=== PATIENT | male | born 1980 | race African-American/Black ===

== ENCOUNTER 2017-01-26 23:41 | Observation (INO) | payer MEDICAID ==
[~2017-01-26] VITALS: Ht 182.9 cm; Wt 136.4 kg
[2017-01-27 00:25] LABS: HEMATOCRIT 40.3 % (42.0-54.0); HEMOGLOBIN 14.3 g/dL (13.5-17.5); LYMPHOCYTES 38.9 % (15-50); MCH 30.4 pg (26.0-34.0); MCHC 35.5 g/dL (31.0-37.0); MCV 85.7 fL (80.0-100.0); MEAN PLATELET VOLUME 8.5 fL (7.4-10.4); NEUTROPHILS 55.9 % (40-80); PLATELET COUNT 268 10x3/uL (130-400); RDW 13.2 % (11.5-14.5); WBC 7.5 10x3/uL (4.8-10.8)
[2017-01-27 00:46] LABS: ALBUMIN 3.7 g/dL (3.4-5.0); ALKALINE PHOSPHATASE 82 U/L (46-116); ALT (SGPT) 64 U/L (10-68); BILIRUBIN - TOTAL 0.64 mg/dL (0.2-1.3); CALC OSMOLALITY 279 mosm/kg (275-300); CALCIUM 9.2 mg/dL (8.5-10.1); CARBON DIOXIDE 26.9 mmol/L (21.0-32.0); CHLORIDE - SERUM 102 mmol/L (98-107); CREATININE - SERUM 0.9 mg/dL (0.6-1.3); GLUCOSE 174 mg/dL (74-106); POTASSIUM - SERUM 3.6 mmol/L (3.5-5.1); SODIUM 139 mmol/L (136-145); UREA NITROGEN 8 mg/dL (7-18); eGFR NON AFRICAN AMERICAN > 90 mL/min (90-120)
[2017-01-27 00:48] LABS: CKMB 2.1 U/L (0.0-3.6); CREATINE KINASE 485 UL (21-232)
[2017-01-27 00:49] LABS: TROPONIN-I < 0.017 ng/mL (0.000-0.060)
--- NOTE | 2017-01-27 02:32 | NUR ---
ATTEMPTED TO CALL ER NURSE LENY AT EXT [phone] TO RECIEVE REPORT, NO ANSWER.
[2017-01-27 03:12] VITALS: BP 153/103; Ht 182.9 cm; Wt 136.4 kg
[2017-01-27] MEDS ORDERED: LISINOPRIL-HCTZ1 TA2 PO (03:12)
[2017-01-27] MEDS ORDERED: CARAFATE1 G PO (03:13)
[2017-01-27] MEDS ORDERED: CYMBALTA30 MG PO (03:14)
[2017-01-27 03:18] LABS: CREATINE KINASE 450 UL (21-232); TROPONIN-I < 0.017 ng/mL (0.000-0.060)
--- NOTE | 2017-01-27 03:42 | NUR ---
SPOKE WITH DR HIGGINS, CARRY OUT CLERK FOR DR LYONS, INFORMED HIM OF PTS COMPLAINTS OF STREETER, CP AND ELEVATED BP. SHAHEED ORDERD FOR C/O PAIN AND STATED THAT HE WILL HAVE DR LYONS COVER HIS BP IN THE MORNING.
--- NOTE | 2017-01-27 03:47 | NUR ---
NORCO 1 TAB GIVEN FOR C/O PAIN. WILL CONT TO MONITOR.
[2017-01-27 08:00] VITALS: BP 149/104
--- NOTE | 2017-01-27 08:45 | NUR ---
JILL NEEDS ATTHIS TIME. CALL LIGHT IN REACH. WILL MONITOR.
[2017-01-27 09:37] LABS: CREATINE KINASE 468 UL (21-232)
[2017-01-27 09:44] LABS: BASOPHILS 0.4 % (0-2); HEMOGLOBIN 14.2 g/dL (13.5-17.5); IMMATURE GRANULOCYTES 0.3 % (0-5); LYMPHOCYTES 40.8 % (15-50); MCH 31.2 pg (26.0-34.0); MCHC 35.5 g/dL (31.0-37.0); MEAN PLATELET VOLUME 9.6 fL (7.4-10.4); MONOCYTES 7.9 % (2-11); NEUTROPHILS 47.6 % (40-80); PLATELET COUNT 251 10x3/uL (130-400); RBC 4.55 10x6/uL (4.20-6.10); RDW 12.7 % (11.5-14.5); WBC 7.1 10x3/uL (4.8-10.8)
[2017-01-27 09:46] LABS: MCV 87.9 fL (80.0-100.0); TROPONIN-I < 0.017 ng/mL (0.000-0.060)
[2017-01-27 09:52] LABS: CALC OSMOLALITY 269 mosm/kg (275-300); CALCIUM 9.3 mg/dL (8.5-10.1); CARBON DIOXIDE 26.8 mmol/L (21.0-32.0); CHLORIDE - SERUM 98 mmol/L (98-107); CREATININE - SERUM 0.9 mg/dL (0.6-1.3); GLUCOSE 204 mg/dL (74-106); POTASSIUM - SERUM 3.5 mmol/L (3.5-5.1); SODIUM 132 mmol/L (136-145); eGFR NON AFRICAN AMERICAN > 90 mL/min (90-120)
[2017-01-27 09:57] LABS: UREA NITROGEN 11 mg/dL (7-18)
[2017-01-27 12:38] VITALS: BP 147/94
--- NOTE | 2017-01-27 14:08 | NUR ---
DC GIVEN TO PT
--- NOTE | 2017-01-27 14:31 | NUR ---
DC HOME PER PERSONAL CAR
== END 2017-01-27 14:31 | disposition home or self-care (01) ==
LOC: D.ER 23:41 → D.M2 01-27 02:21 → OBSVTIME 01-27 02:21 → D.M2 01-27 14:27
PROVIDERS: Family Medicine; Internal Medicine Interventional Cardiology; ADMIT Family Medicine
DX: R07.9 Chest pain, unspecified (principal); R94.31 Abnormal electrocardiogram [ECG] [EKG]; I10 Essential (primary) hypertension; F32.9 Major depressive disorder, single episode, unspecified; K21.9 Gastro-esophageal reflux disease without esophagitis; Z87.891 Personal history of nicotine dependence

== ENCOUNTER 2017-03-09 15:16 | Emergency (ER) | payer MEDICAID ==
[2017-01-27 03:12] VITALS: BMI 40.8
[~2017-03-09 15:16] MED LIST: CARAFATE1 G PO; CYMBALTA30 MG PO; LISINOPRIL-HCTZ1 TA2 PO
== END 2017-03-09 15:30 | disposition left against medical advice (07) ==
LOC: D.ER 15:16
DX: Z02.9 Encounter for administrative examinations, unspecified (principal)

== ENCOUNTER 2017-05-16 16:33 | Emergency (ER) | payer MEDICAID ==
[2017-01-27 03:12] VITALS: BMI 40.8
[2017-05-16 17:34] LABS: BASOPHILS 0.3 % (0-2); EOSINOPHILS 1.6 % (0-7); HEMATOCRIT 37.4 % (42.0-54.0); HEMOGLOBIN 12.9 g/dL (13.5-17.5); IMMATURE GRANULOCYTES 0.3 % (0-5); LYMPHOCYTES 21.4 % (15-50); MCH 29.9 pg (26.0-34.0); MCHC 34.5 g/dL (31.0-37.0); MCV 86.8 fL (80.0-100.0); MEAN PLATELET VOLUME 9.1 fL (7.4-10.4); MONOCYTES 7.3 % (2-11); NEUTROPHILS 69.1 % (40-80); PLATELET COUNT 235 10x3/uL (130-400); RBC 4.31 10x6/uL (4.20-6.10); RDW 12.4 % (11.5-14.5); WBC 10.7 10x3/uL (4.8-10.8)
[2017-05-16 17:49] LABS: ALBUMIN 3.3 g/dL (3.4-5.0); ALKALINE PHOSPHATASE 86 U/L (46-116); ALT (SGPT) 50 U/L (10-68); BILIRUBIN - TOTAL 1.05 mg/dL (0.2-1.3); CALC OSMOLALITY 264 mosm/kg (275-300); CHLORIDE - SERUM 98 mmol/L (98-107); CREATININE - SERUM 1.1 mg/dL (0.6-1.3); POTASSIUM - SERUM 3.6 mmol/L (3.5-5.1); SODIUM 132 mmol/L (136-145); UREA NITROGEN 8 mg/dL (7-18); eGFR NON AFRICAN AMERICAN 81 mL/min (90-120)
[2017-05-16 17:50] LABS: GLUCOSE 127 mg/dL (74-106)
[2017-05-16 17:52] LABS: TROPONIN-I < 0.017 ng/mL (0.000-0.060)
== END 2017-05-16 20:05 | disposition home or self-care (01) ==
LOC: D.ER 16:33
PROVIDERS: Emergency Medicine
DX: J20.9 Acute bronchitis, unspecified (principal); I10 Essential (primary) hypertension; R00.0 Tachycardia, unspecified

== ENCOUNTER 2017-08-31 11:59 | Emergency (ER) | payer MEDICAID ==
[2017-01-27 03:12] VITALS: BMI 40.8
[2017-08-31 13:15] LABS: BASOPHILS 0.4 % (0-2); EOSINOPHILS 2.3 % (0-7); HEMATOCRIT 37.8 % (42.0-54.0); HEMOGLOBIN 13.4 g/dL (13.5-17.5); IMMATURE GRANULOCYTES 0.2 % (0-5); LYMPHOCYTES 39.1 % (15-50); MCH 29.7 pg (26.0-34.0); MCHC 35.4 g/dL (31.0-37.0); MCV 83.8 fL (80.0-100.0); MEAN PLATELET VOLUME 9.1 fL (7.4-10.4); MONOCYTES 7.7 % (2-11); NEUTROPHILS 50.3 % (40-80); PLATELET COUNT 231 10x3/uL (130-400); RBC 4.51 10x6/uL (4.20-6.10); RDW 12.9 % (11.5-14.5); WBC 4.8 10x3/uL (4.8-10.8)
[2017-08-31 13:31] LABS: ALBUMIN 3.7 g/dL (3.4-5.0); ALKALINE PHOSPHATASE 73 U/L (46-116); ALT (SGPT) 54 U/L (10-68); BILIRUBIN - TOTAL 0.65 mg/dL (0.2-1.3); CALC OSMOLALITY 274 mosm/kg (275-300); CALCIUM 9.1 mg/dL (8.5-10.1); CARBON DIOXIDE 26.4 mmol/L (21.0-32.0); CHLORIDE - SERUM 101 mmol/L (98-107); CREATININE - SERUM 0.9 mg/dL (0.6-1.3); POTASSIUM - SERUM 3.9 mmol/L (3.5-5.1); PROTEIN - SERUM 7.6 g/dL (6.4-8.2); SODIUM 136 mmol/L (136-145); UREA NITROGEN 9 mg/dL (7-18); eGFR NON AFRICAN AMERICAN > 90 mL/min (90-120)
[2017-08-31 13:32] LABS: GLUCOSE 177 mg/dL (74-106); TROPONIN-I < 0.017 ng/mL (0.000-0.060)
== END 2017-08-31 17:06 | disposition home or self-care (01) ==
LOC: D.ER 11:59
PROVIDERS: Family Medicine
DX: R73.9 Hyperglycemia, unspecified (principal); I10 Essential (primary) hypertension; K21.9 Gastro-esophageal reflux disease without esophagitis; F03.90 Unspecified dementia, unspecified severity, without behavioral disturbance, psychotic disturbance, mood disturbance, and anxiety

== ENCOUNTER 2017-11-02 05:14 | Emergency (ER) | payer MEDICAID ==
[2017-01-27 03:12] VITALS: BMI 40.8
[2017-11-02 05:46] LABS: BASOPHILS 0.5 % (0-2); EOSINOPHILS 3.9 % (0-7); HEMATOCRIT 37.7 % (42.0-54.0); HEMOGLOBIN 13.2 g/dL (13.5-17.5); IMMATURE GRANULOCYTES 0.2 % (0-5); LYMPHOCYTES 44.6 % (15-50); MCH 29.7 pg (26.0-34.0); MCV 84.9 fL (80.0-100.0); NEUTROPHILS 41.8 % (40-80); PLATELET COUNT 235 10x3/uL (130-400); RBC 4.44 10x6/uL (4.20-6.10); RDW 12.7 % (11.5-14.5); WBC 6.1 10x3/uL (4.8-10.8)
[2017-11-02 06:00] LABS: ALBUMIN 3.4 g/dL (3.4-5.0); ALKALINE PHOSPHATASE 80 U/L (46-116); ALT (SGPT) 51 U/L (10-68); BILIRUBIN - TOTAL 0.56 mg/dL (0.2-1.3); CALC OSMOLALITY 273 mosm/kg (275-300); CALCIUM 8.9 mg/dL (8.5-10.1); CARBON DIOXIDE 29.2 mmol/L (21.0-32.0); CHLORIDE - SERUM 101 mmol/L (98-107); GLUCOSE 136 mg/dL (74-106); POTASSIUM - SERUM 3.7 mmol/L (3.5-5.1); PROTEIN - SERUM 7.7 g/dL (6.4-8.2); SODIUM 136 mmol/L (136-145); UREA NITROGEN 13 mg/dL (7-18); eGFR NON AFRICAN AMERICAN 90 mL/min (90-120)
[2017-11-02 06:11] LABS: CKMB 3.3 U/L (0.0-3.6); CREATINE KINASE 654 UL (21-232)
[2017-11-02 06:30] LABS: TROPONIN-I < 0.017 ng/mL (0.000-0.060)
== END 2017-11-02 06:45 | disposition home or self-care (01) ==
LOC: D.ER 05:14
PROVIDERS: Emergency Medicine
DX: R07.89 Other chest pain (principal); K21.9 Gastro-esophageal reflux disease without esophagitis; I10 Essential (primary) hypertension

== ENCOUNTER 2018-01-15 20:56 | Emergency (ER) | payer MEDICAID ==
[~2018-01-15] VITALS: Ht 182.9 cm; Wt 129.3 kg
[2018-01-15 21:39] VITALS: Ht 182.9 cm; Wt 129.3 kg
[2018-01-15] MEDS ORDERED: ADIPEX-P37.5 M1 PO (21:42)
[2018-01-15] MEDS ORDERED: ACTOS15 MG PO (21:42)
[2018-01-15 21:58] LABS: BASOPHILS 0.3 % (0-2); EOSINOPHILS 1.9 % (0-7); HEMATOCRIT 43.1 % (42.0-54.0); HEMOGLOBIN 15.4 g/dL (13.5-17.5); IMMATURE GRANULOCYTES 0.2 % (0-5); LYMPHOCYTES 38.2 % (15-50); MCH 30.4 pg (26.0-34.0); MCHC 35.7 g/dL (31.0-37.0); MCV 85.2 fL (80.0-100.0); MONOCYTES 6.5 % (2-11); NEUTROPHILS 52.9 % (40-80); PLATELET COUNT 273 10x3/uL (130-400); RBC 5.06 10x6/uL (4.20-6.10); RDW 12.8 % (11.5-14.5); WBC 5.9 10x3/uL (4.8-10.8)
[2018-01-15 22:12] LABS: ANION GAP 11.4 mmol/L (8-16); BILIRUBIN - TOTAL 0.57 mg/dL (0.2-1.3); CALCIUM 9.6 mg/dL (8.5-10.1); CARBON DIOXIDE 28.9 mmol/L (21.0-32.0); CREATININE - SERUM 1.2 mg/dL (0.6-1.3); POTASSIUM - SERUM 4.3 mmol/L (3.5-5.1); PROTEIN - SERUM 8.6 g/dL (6.4-8.2)
[2018-01-15 23:48] LABS: APPEARANCE CLEAR (CLEAR); BILIRUBIN NEGATIVE (NEGATIVE); COLOR YELLOW (YELLOW); GLUCOSE NEGATIVE (NEGATIVE); KETONE NEGATIVE (NEGATIVE); NITRITE NEGATIVE (NEGATIVE); PROTEIN NEGATIVE (NEGATIVE); UROBILINOGEN NORMAL (NORMAL)
[2018-01-15 23:54] LABS: UDS - AMPHET NEGATIVE QUAL (NEGATIVE); UDS - BARB NEGATIVE QUAL (NEGATIVE); UDS - BENZO NEGATIVE QUAL (NEGATIVE); UDS - COCAINE NEGATIVE QUAL (NEGATIVE); UDS - OPIATE NEGATIVE QUAL (NEGATIVE); UDS - PCP NEGATIVE QUAL (NEGATIVE); UDS - THC NEGATIVE QUAL (NEGATIVE)
[2018-01-16] MEDS ORDERED: ZOFRAN4 MG PO (02:32)
[2018-01-16 02:58] VITALS: BP 136/91
== END 2018-01-16 02:58 | disposition home or self-care (01) ==
LOC: D.ER 20:56
PROVIDERS: Emergency Medicine
DX: K52.9 Noninfective gastroenteritis and colitis, unspecified (principal); R11.0 Nausea; I10 Essential (primary) hypertension; F17.200 Nicotine dependence, unspecified, uncomplicated

== ENCOUNTER 2019-01-11 03:24 | Emergency (ER) | payer MEDICAID ==
[~2019-01-11] VITALS: Ht 182.9 cm; Wt 95.3 kg
[~2019-01-11 03:24] MED LIST changes: +ACTOS15 MG PO; +ADIPEX-P37.5 M1 PO; +ZOFRAN4 MG PO
[2019-01-11 03:29] VITALS: Ht 182.9 cm; Wt 95.3 kg
[2019-01-11] MEDS ORDERED: KEFLEX500 MG PO (03:46)
[2019-01-11 03:58] VITALS: BP 132/97
== END 2019-01-11 03:58 | disposition home or self-care (01) ==
LOC: D.ER 03:24
DX: S91.312A Laceration without foreign body, left foot, initial encounter (principal); W26.8XXA Contact with other sharp object(s), not elsewhere classified, initial encounter; Y93.89 Activity, other specified; Y92.019 Unspecified place in single-family (private) house as the place of occurrence of the external cause

== ENCOUNTER 2019-01-28 01:14 | Emergency (ER) | payer MEDICAID ==
[~2019-01-28] VITALS: Ht 182.9 cm; Wt 122.7 kg
[~2019-01-28 01:14] MED LIST changes: +KEFLEX500 MG PO
[2019-01-28 01:18] VITALS: Ht 182.9 cm; Wt 122.7 kg
[2019-01-28] MEDS ORDERED: TOPAMAX50 MG PO (01:19)
[2019-01-28] MEDS ORDERED: VYVANSE20 MG PO (01:20)
[2019-01-28] MEDS ORDERED: CYCLOBENZAPRINE10 MG PO (02:01)
[2019-01-28 02:19] VITALS: BP 132/81
== END 2019-01-28 02:20 | disposition home or self-care (01) ==
LOC: D.ER 01:14
DX: M79.601 Pain in right arm (principal)

== ENCOUNTER 2019-05-16 13:34 | Emergency (ER) | payer MEDICAID ==
[~2019-05-16] VITALS: Ht 182.9 cm; Wt 134.1 kg
[~2019-05-16 13:34] MED LIST changes: +CYCLOBENZAPRINE10 MG PO; +TOPAMAX50 MG PO; +VYVANSE20 MG PO
[2019-05-16 13:45] VITALS: Ht 182.9 cm; Wt 134.1 kg
[2019-05-16] MEDS ORDERED: VISTARIL25 MG PO (17:05)
[2019-05-16] MEDS ORDERED: MEDROL DOSE PACK4 MG PO (17:05)
[2019-05-16 17:15] VITALS: BP 128/81
== END 2019-05-16 17:17 | disposition home or self-care (01) ==
LOC: D.ER 13:34
DX: L30.9 Dermatitis, unspecified (principal); E11.9 Type 2 diabetes mellitus without complications; I10 Essential (primary) hypertension

== ENCOUNTER 2019-11-06 23:01 | Emergency (ER) | payer MEDICAID ==
[~2019-11-06] VITALS: Ht 182.9 cm; Wt 136.4 kg
[~2019-11-06 23:01] MED LIST changes: +MEDROL DOSE PACK4 MG PO; +VISTARIL25 MG PO
[2019-11-06 23:07] VITALS: Ht 182.9 cm; Wt 136.4 kg
[2019-11-06] MEDS ORDERED: MIRALAX17 GM PO (23:41)
[2019-11-07 00:11] VITALS: BP 125/77
[2019-11-07] MEDS ORDERED: BENTYL 20 MG TA20 MG PO (22:54)
== END 2019-11-07 00:12 | disposition home or self-care (01) ==
LOC: D.ER 23:01
DX: K59.00 Constipation, unspecified (principal); I10 Essential (primary) hypertension; Z72.0 Tobacco use

== ENCOUNTER 2019-11-07 19:56 | Emergency (ER) | payer MEDICAID ==
[~2019-11-07] VITALS: Ht 182.9 cm; Wt 136.1 kg
[~2019-11-07 19:56] MED LIST changes: +MIRALAX17 GM PO
[2019-11-07 20:00] VITALS: Ht 182.9 cm; Wt 136.1 kg
[2019-11-07 20:14] LABS: BASOPHILS 0.3 % (0-2); EOSINOPHILS 0.3 % (0-7); HEMATOCRIT 39.2 % (42.0-54.0); HEMOGLOBIN 13.7 g/dL (13.5-17.5); IMMATURE GRANULOCYTES 0.1 % (0-5); LYMPHOCYTES 25.6 % (15-50); MCHC 34.9 g/dL (31.0-37.0); MEAN PLATELET VOLUME 8.5 fL (7.4-10.4); MONOCYTES 7.1 % (2-11); NEUTROPHILS 66.6 % (40-80); PLATELET COUNT 284 10x3/uL (130-400); RBC 4.56 10x6/uL (4.20-6.10); RDW 12.9 % (11.5-14.5); WBC 7.2 10x3/uL (4.8-10.8)
[2019-11-07 20:39] LABS: CALC OSMOLALITY 270 mosm/kg (275-300); CALCIUM 9.3 mg/dL (8.5-10.1); CARBON DIOXIDE 23.6 mmol/L (21.0-32.0); CHLORIDE - SERUM 99 mmol/L (98-107); CREATININE - SERUM 0.9 mg/dL (0.6-1.3); GLUCOSE 126 mg/dL (74-106); POTASSIUM - SERUM 3.5 mmol/L (3.5-5.1); SODIUM 135 mmol/L (136-145); UREA NITROGEN 9 mg/dL (7-18); eGFR NON AFRICAN AMERICAN > 90 mL/min (90-120)
[2019-11-07 20:43] LABS: ALBUMIN 4.1 g/dL (3.4-5.0); ALKALINE PHOSPHATASE 82 U/L (30-120); ALT (SGPT) 48 U/L (10-68); AMYLASE - SERUM 51 U/L (25-115); BILIRUBIN - TOTAL 0.95 mg/dL (0.2-1.3); LIPASE 65 U/L (73-393); PROTEIN - SERUM 8.3 g/dL (6.4-8.2)
[2019-11-07 20:44] LABS: TROPONIN-I < 0.017 ng/mL (0.000-0.060)
[2019-11-07 22:19] LABS: BILIRUBIN NEGATIVE (NEGATIVE); GLUCOSE NEGATIVE (NEGATIVE); KETONE MODERATE mg/dL (NEGATIVE); NITRITE NEGATIVE (NEGATIVE); UROBILINOGEN NORMAL (NORMAL)
[2019-11-07] MEDS ORDERED: BENTYL 20 MG TA20 MG PO (22:54)
[2019-11-07 23:28] VITALS: BP 145/79
== END 2019-11-07 23:31 | disposition home or self-care (01) ==
LOC: D.ER 19:56
PROVIDERS: Family Medicine
DX: R10.12 Left upper quadrant pain (principal); I10 Essential (primary) hypertension

== ENCOUNTER 2019-11-14 11:52 | Emergency (ER) | payer MEDICAID ==
[~2019-11-14 11:52] MED LIST changes: +BENTYL 20 MG TA20 MG PO
[2019-11-14 11:57] VITALS: Ht 182.9 cm
[2019-11-14 12:35] LABS: BASOPHILS 0.1 % (0-2); HEMATOCRIT 39.5 % (42.0-54.0); HEMOGLOBIN 13.5 g/dL (13.5-17.5); IMMATURE GRANULOCYTES 0.3 % (0-5); LYMPHOCYTES 27.3 % (15-50); MCH 29.8 pg (26.0-34.0); MCHC 34.2 g/dL (31.0-37.0); MCV 87.2 fL (80.0-100.0); MEAN PLATELET VOLUME 8.7 fL (7.4-10.4); MONOCYTES 6.9 % (2-11); NEUTROPHILS 64.4 % (40-80); PLATELET COUNT 272 10x3/uL (130-400); RBC 4.53 10x6/uL (4.20-6.10); RDW 13.7 % (11.5-14.5); WBC 6.9 10x3/uL (4.8-10.8)
[2019-11-14 12:45] LABS: APTT 25.2 SECONDS (22.8-39.4); INR 1.05 (0.85-1.17); PROTIME 13.7 SECONDS (11.6-15.0)
[2019-11-14 12:49] LABS: CALC OSMOLALITY 277 mosm/kg (275-300); CALCIUM 8.7 mg/dL (8.5-10.1); CARBON DIOXIDE 24.8 mmol/L (21.0-32.0); CHLORIDE - SERUM 104 mmol/L (98-107); CREATININE - SERUM 1.2 mg/dL (0.6-1.3); GLUCOSE 152 mg/dL (74-106); POTASSIUM - SERUM 3.4 mmol/L (3.5-5.1); SODIUM 138 mmol/L (136-145); UREA NITROGEN 10 mg/dL (7-18); eGFR NON AFRICAN AMERICAN 72 mL/min (90-120)
[2019-11-14 13:07] LABS: ALKALINE PHOSPHATASE 77 U/L (30-120); ALT (SGPT) 48 U/L (10-68); BILIRUBIN - TOTAL 0.47 mg/dL (0.2-1.3); CKMB 4.2 U/L (0.0-3.6); MAGNESIUM - SERUM 2.3 mg/dL (1.8-2.4); PROTEIN - SERUM 7.8 g/dL (6.4-8.2)
[2019-11-14 13:08] LABS: CREATINE KINASE 921 UL (21-232); TROPONIN-I < 0.017 ng/mL (0.000-0.060)
[2019-11-14 13:34] VITALS: BP 146/76
== END 2019-11-14 13:35 | disposition home or self-care (01) ==
LOC: D.ER 11:52
PROVIDERS: Family Medicine
DX: R07.89 Other chest pain (principal); K59.00 Constipation, unspecified; R73.03 Prediabetes; I10 Essential (primary) hypertension

== ENCOUNTER 2019-12-16 02:15 | Emergency (ER) | payer MEDICAID ==
[~2019-12-16] VITALS: Ht 182.9 cm; Wt 134.1 kg
[2019-12-16 02:27] VITALS: Ht 182.9 cm; Wt 134.1 kg
[2019-12-16] MEDS ORDERED: DULCOLAX STOOL100 MG PO (04:08)
[2019-12-16] MEDS ORDERED: GAS-X180 MG PO (04:08)
[2019-12-16 04:13] VITALS: BP 157/81
== END 2019-12-16 04:13 | disposition home or self-care (01) ==
LOC: D.ER 02:15
DX: K59.09 Other constipation (principal); R73.03 Prediabetes; I10 Essential (primary) hypertension

== ENCOUNTER 2019-12-19 03:14 | Emergency (ER) | payer MEDICAID ==
[~2019-12-19] VITALS: Ht 182.9 cm; Wt 90.9 kg
[~2019-12-19 03:14] MED LIST changes: +DULCOLAX STOOL100 MG PO; +GAS-X180 MG PO
[2019-12-19 03:24] VITALS: Ht 182.9 cm; Wt 90.9 kg
[2019-12-19 03:39] LABS: HEMATOCRIT 38.9 % (42.0-54.0); HEMOGLOBIN 13.8 g/dL (13.5-17.5); LYMPHOCYTES 29.5 % (15-50); MCH 30.8 pg (26.0-34.0); MCHC 35.5 g/dL (31.0-37.0); MCV 86.8 fL (80.0-100.0); MEAN PLATELET VOLUME 8.4 fL (7.4-10.4); NEUTROPHILS 61.8 % (40-80); PLATELET COUNT 247 10x3/uL (130-400); RBC 4.48 10x6/uL (4.20-6.10); RDW 13.4 % (11.5-14.5); WBC 7.1 10x3/uL (4.8-10.8)
[2019-12-19 03:52] LABS: CALC OSMOLALITY 272 mosm/kg (275-300); CALCIUM 9.1 mg/dL (8.5-10.1); CARBON DIOXIDE 30.4 mmol/L (21.0-32.0); CHLORIDE - SERUM 100 mmol/L (98-107); CREATININE - SERUM 0.9 mg/dL (0.6-1.3); GLUCOSE 131 mg/dL (74-106); POTASSIUM - SERUM 3.2 mmol/L (3.5-5.1); PROTIME 13.1 SECONDS (11.6-15.0); SODIUM 137 mmol/L (136-145); UREA NITROGEN 3 mg/dL (7-18); eGFR NON AFRICAN AMERICAN > 90 mL/min (90-120)
[2019-12-19 04:07] LABS: ALKALINE PHOSPHATASE 77 U/L (30-120); ALT (SGPT) 52 U/L (10-68); BILIRUBIN - TOTAL 0.64 mg/dL (0.2-1.3); CKMB 4.9 U/L (0.0-3.6); MAGNESIUM - SERUM 2.1 mg/dL (1.8-2.4); PROTEIN - SERUM 7.7 g/dL (6.4-8.2)
[2019-12-19 04:12] LABS: CREATINE KINASE 1167 UL (21-232); TROPONIN-I < 0.017 ng/mL (0.000-0.060)
[2019-12-19 04:47] VITALS: BP 132/74
[2019-12-20] MEDS ORDERED: OMEPRAZOLE20 M1 PO (16:59)
== END 2019-12-19 04:47 | disposition home or self-care (01) ==
LOC: D.ER 03:14
PROVIDERS: Surgery
DX: R07.89 Other chest pain (principal); D64.9 Anemia, unspecified; K59.00 Constipation, unspecified; I10 Essential (primary) hypertension; E87.6 Hypokalemia; R73.03 Prediabetes; Z72.0 Tobacco use

== ENCOUNTER 2019-12-20 14:10 | Emergency (ER) | payer MEDICAID ==
[~2019-12-20] VITALS: Ht 182.9 cm; Wt 131.8 kg
[2019-12-20 14:22] VITALS: Ht 182.9 cm; Wt 131.8 kg
[2019-12-20 15:06] LABS: CALC OSMOLALITY 275 mosm/kg (275-300); CALCIUM 8.4 mg/dL (8.5-10.1); CARBON DIOXIDE 26.5 mmol/L (21.0-32.0); CHLORIDE - SERUM 104 mmol/L (98-107); CREATININE - SERUM 0.8 mg/dL (0.6-1.3); GLUCOSE 110 mg/dL (74-106); POTASSIUM - SERUM 3.9 mmol/L (3.5-5.1); SODIUM 139 mmol/L (136-145); UREA NITROGEN 3 mg/dL (7-18); eGFR NON AFRICAN AMERICAN > 90 mL/min (90-120)
[2019-12-20 15:22] LABS: ALBUMIN 3.7 g/dL (3.4-5.0); ALKALINE PHOSPHATASE 79 U/L (30-120); ALT (SGPT) 53 U/L (10-68); BILIRUBIN - TOTAL 0.36 mg/dL (0.2-1.3); CKMB 5.2 U/L (0.0-3.6); CREATINE KINASE 945 UL (21-232); MAGNESIUM - SERUM 2.2 mg/dL (1.8-2.4); PROTEIN - SERUM 7.5 g/dL (6.4-8.2); TROPONIN-I < 0.017 ng/mL (0.000-0.060)
[2019-12-20 15:29] LABS: APTT 25.9 SECONDS (22.8-39.4); INR 0.94 (0.85-1.17); PROTIME 12.5 SECONDS (11.6-15.0)
[2019-12-20 16:13] LABS: HEMATOCRIT 40.4 % (42.0-54.0); LYMPHOCYTES 34.6 % (15-50); MCH 30.4 pg (26.0-34.0); MCHC 34.7 g/dL (31.0-37.0); MCV 87.6 fL (80.0-100.0); MEAN PLATELET VOLUME 9.2 fL (7.4-10.4); NEUTROPHILS 56.4 % (40-80); PLATELET COUNT 262 10x3/uL (130-400); RBC 4.61 10x6/uL (4.20-6.10); RDW 14.2 % (11.5-14.5)
[2019-12-20 16:15] LABS: WBC 5.1 10x3/uL (4.8-10.8)
[2019-12-20] MEDS ORDERED: OMEPRAZOLE20 M1 PO (16:59)
[2019-12-20 17:42] VITALS: BP 158/89
== END 2019-12-20 17:43 | disposition home or self-care (01) ==
LOC: D.ER 14:10
PROVIDERS: Family Medicine
DX: E86.0 Dehydration (principal); K21.9 Gastro-esophageal reflux disease without esophagitis; T47.4X5A Adverse effect of other laxatives, initial encounter; K59.00 Constipation, unspecified

== ENCOUNTER 2019-12-24 20:38 | Emergency (ER) | payer MEDICAID ==
[~2019-12-24] VITALS: Ht 182.9 cm; Wt 132.3 kg
[~2019-12-24 20:38] MED LIST changes: +OMEPRAZOLE20 M1 PO
[2019-12-24 21:04] VITALS: Ht 182.9 cm; Wt 132.3 kg
[2019-12-24 21:19] LABS: BASOPHILS 0.3 % (0-2); EOSINOPHILS 1.8 % (0-7); HEMATOCRIT 42.6 % (42.0-54.0); HEMOGLOBIN 14.9 g/dL (13.5-17.5); IMMATURE GRANULOCYTES 0.1 % (0-5); LYMPHOCYTES 34.4 % (15-50); MCV 88.6 fL (80.0-100.0); MEAN PLATELET VOLUME 8.7 fL (7.4-10.4); MONOCYTES 8.2 % (2-11); NEUTROPHILS 55.2 % (40-80); PLATELET COUNT 261 10x3/uL (130-400); RBC 4.81 10x6/uL (4.20-6.10); RDW 13.6 % (11.5-14.5); WBC 7.8 10x3/uL (4.8-10.8)
[2019-12-24 21:37] LABS: CALC OSMOLALITY 275 mosm/kg (275-300); CALCIUM 9.1 mg/dL (8.5-10.1); CARBON DIOXIDE 24.4 mmol/L (21.0-32.0); CHLORIDE - SERUM 106 mmol/L (98-107); CREATININE - SERUM 0.8 mg/dL (0.6-1.3); GLUCOSE 99 mg/dL (74-106); POTASSIUM - SERUM 3.8 mmol/L (3.5-5.1); SODIUM 140 mmol/L (136-145); UREA NITROGEN 5 mg/dL (7-18); eGFR NON AFRICAN AMERICAN > 90 mL/min (90-120)
[2019-12-24 21:41] LABS: BILIRUBIN NEGATIVE (NEGATIVE); GLUCOSE NEGATIVE (NEGATIVE); KETONE NEGATIVE (NEGATIVE); NITRITE NEGATIVE (NEGATIVE); UROBILINOGEN NORMAL (NORMAL)
[2019-12-24 21:46] LABS: UDS - AMPHET NEGATIVE QUAL (NEGATIVE); UDS - BARB NEGATIVE QUAL (NEGATIVE); UDS - BENZO NEGATIVE QUAL (NEGATIVE); UDS - COCAINE NEGATIVE QUAL (NEGATIVE); UDS - OPIATE NEGATIVE QUAL (NEGATIVE); UDS - PCP NEGATIVE QUAL (NEGATIVE); UDS - THC NEGATIVE QUAL (NEGATIVE)
[2019-12-24 21:55] LABS: ALBUMIN 3.9 g/dL (3.4-5.0); ALT (SGPT) 52 U/L (10-68); BILIRUBIN - TOTAL 0.28 mg/dL (0.2-1.3); CKMB 2.8 U/L (0.0-3.6); CREATINE KINASE 498 UL (21-232); PROTEIN - SERUM 7.7 g/dL (6.4-8.2); THYROID STIMULATING HORMONE 0.75 uIU/mL (0.36-3.74); TROPONIN-I < 0.017 ng/mL (0.000-0.060)
[2019-12-24 21:57] LABS: ALKALINE PHOSPHATASE 65 U/L (30-120)
[2019-12-24 22:20] VITALS: BP 129/84
== END 2019-12-24 22:20 | disposition home or self-care (01) ==
LOC: D.ER 20:38
PROVIDERS: Family Medicine
DX: R00.0 Tachycardia, unspecified (principal); R73.03 Prediabetes; I10 Essential (primary) hypertension; R22.1 Localized swelling, mass and lump, neck; E07.9 Disorder of thyroid, unspecified; R11.0 Nausea; R35.0 Frequency of micturition; Z72.0 Tobacco use

== ENCOUNTER → 2019-12-30 08:19 | Outpatient (CLI) | payer BC ==
[2019-12-24 21:04] VITALS: BMI 39.5
--- NOTE | ~2019-12-30 | EC ---
PATIENT:GURPREET SNOW DATE OF SERVICE: 12/30/19 SEX: M MEDICAL RECORD: [id number] DATE OF : [birth year] [facility] AGE [facility] PATIENT: 39 ADMISSION DATE: 12/30/19 REFERRING PHYSICIAN: INTERPRETING PHYSICIAN: QUAN DORSEY MD ECHOCARDIOGRAM REPORT ECHO CHARGES 4 ECHO COMPLETE Date: 12/30/19 CLINICAL DIAGNOSIS: HTN ECHOCARDIOGRAPHIC MEASUREMENTS (adult normal given) AC root (d.<3.7cm) 3.8 cm LV Septum d (<1.2 cm> 1.3 cm Valve Excursion 1.8 cm LV Septum (systole) 1.5 cm Left Atria (s.<4.0cm> 4.3 cm LVPW d(<1.2cm) 1.5 cm RV (d.<2.3cm) 4.0 cm LVPW (sytole) 1.8 cm LV diastole(<5.6CM) 4.8 cm MV E-F(>70mm/sec) cm LV systole 3.0 cm LVOT Diameter 2.3 cm MV exc.(>10mm) 1.6 cm Est.ejection fraction (50-75%) % DOPPLER: LVIT cm/sec A 67.0 cm/sec E 82.0 cm/sec LA cm/sec RVSP 22 mmHg LVOT 104 cm/sec AOP1/2T m/s Asc. Ao 149 cm/sec RVOT 91 cm/sec RA cm/sec PA 130 cm/sec AV Gradient Peak 8.88 mmHg AV Mean 4.63 mmHg AV Area 2.9 cm MV Gradient Peak 4.33 mmHg MV Mean 1.94 mmHg MV Area cm COMMENTS: Pyrotechnist: 2 DARCY LOPEZ Cpc: 3 Dr. Raines TAPE# PACS Pericardial Effusion N DATE OF SERVICE: Adequate 2D, color flow imaging, spectral Doppler, and M-Mode. Mild LVH. LV internal dimension is normal. Wall motion is normal. EF is greater than or equal to 55%. Aortic valve is tricuspid. No evidence of stenosis by Doppler interrogation. Left atrium is mildly dilated at 4.3 cm. Mitral valve shows no prolapse. Trace MR. Right-sided chambers are grossly normal. Trace TR. ECHOCARDIOGRAM REPORT [id number] GURPREET SNOW TRANSINT:[id number] Voice Confirmation ID: [id number] DOCUMENT ID: [id number] QUAN DORSEY MD CC: [id number] DICTATION DATE: 12/30/19 1529 HISTOLOGY TECH: 12/30/19 1744 [place] [id number] [place] [id number]
== END | disposition home or self-care (01) ==
LOC: D.HCCECHO 08:19
PROVIDERS: ATTEND Internal Medicine Interventional Cardiology
DX: I10 Essential (primary) hypertension (principal)

== ENCOUNTER → 2020-03-17 13:05 | Outpatient (CLI) | payer MEDICAID ==
[2019-12-24 21:04] VITALS: BMI 39.5
== END | disposition home or self-care (01) ==
LOC: D.US 03-15 13:30 → D.NM 03-15 14:00 → D.US 13:00
PROVIDERS: ATTEND Internal Medicine Gastroenterology
DX: R11.2 Nausea with vomiting, unspecified (principal); R10.9 Unspecified abdominal pain

== ENCOUNTER 2021-01-24 05:44 | Emergency (ER) | payer BC ==
[~2021-01-24] VITALS: Ht 182.9 cm; Wt 138.6 kg
[2021-01-24 05:49] VITALS: BP 171/98; Ht 182.9 cm; Wt 138.6 kg
[2021-01-24 07:13] LABS: BASOPHILS 0.8 % (0-2); EOSINOPHILS 1.2 % (0-7); HEMATOCRIT 43.8 % (42.0-54.0); LYMPHOCYTES 27.6 % (15-50); MCH 29.2 pg (26.0-34.0); MCHC 34.3 g/dL (31.0-37.0); MCV 85.2 fL (80.0-100.0); MEAN PLATELET VOLUME 7.1 fL (7.4-10.4); MONOCYTES 7.2 % (2-11); NEUTROPHILS 63.2 % (40-80); RBC 5.14 10x6/uL (4.20-6.10); RDW 14.7 % (11.5-14.5); WBC 8.2 10x3/uL (4.8-10.8)
[2021-01-24 07:18] LABS: PLATELET COUNT 326 10x3/uL (130-400)
[2021-01-24 07:21] LABS: CALC OSMOLALITY 276 mosm/kg (275-300); CALCIUM 9.6 mg/dL (8.5-10.1); CARBON DIOXIDE 25.7 mmol/L (21.0-32.0); CHLORIDE - SERUM 102 mmol/L (98-107); CREATININE - SERUM 0.9 mg/dL (0.6-1.3); GLUCOSE 143 mg/dL (74-106); POTASSIUM - SERUM 3.2 mmol/L (3.5-5.1); SODIUM 139 mmol/L (136-145); UREA NITROGEN 4 mg/dL (7-18); eGFR NON AFRICAN AMERICAN > 90 mL/min (90-120)
[2021-01-24 07:32] LABS: ALBUMIN 3.7 g/dL (3.4-5.0); ALKALINE PHOSPHATASE 90 U/L (30-120); ALT (SGPT) 69 U/L (10-68); BILIRUBIN - TOTAL 0.85 mg/dL (0.2-1.3); C-REACTIVE PROTEIN 0.9 mg/dL (0.0-0.9); LIPASE 168 U/L (73-393); PROTEIN - SERUM 8.2 g/dL (6.4-8.2)
[2021-01-24 07:39] LABS: AMYLASE - SERUM 45 U/L (25-115); TROPONIN-I < 0.017 ng/mL (0.000-0.060)
[2021-01-24] MEDS ORDERED: LEVSIN/ANASP0.125 MG PO (08:44)
[2021-01-24] MEDS ORDERED: ZOFRAN ODT4 MG/UDTAB PO (08:44)
[2021-01-24] MEDS ORDERED: PROTONIX40 MG PO (08:44)
[2021-01-24 08:52] LABS: BILIRUBIN NEGATIVE (NEGATIVE); KETONE NEGATIVE mg/dL (< 1+); NITRITE NEGATIVE (NEGATIVE); UROBILINOGEN NORMAL mg/dL (< 2)
== END 2021-01-24 09:07 | disposition home or self-care (01) ==
LOC: D.ER 05:44
PROVIDERS: Family Medicine
DX: R10.32 Left lower quadrant pain (principal); R11.2 Nausea with vomiting, unspecified; E87.6 Hypokalemia; I10 Essential (primary) hypertension; Z72.0 Tobacco use